=== PATIENT | female | born 1950 | race Caucasian/White ===

== ENCOUNTER → 2022-12-18 | Outpatient (CLI) | payer MEDICARE, OTHER ==
--- NOTE | 2022-12-18 15:12 | MR ---
EXAMINATION TYPE: MR knee LT wo con DATE OF EXAM: 12/18/2022 COMPARISON: None HISTORY: Left knee pain, fall 1 year ago. TECHNIQUE: Multiplanar, multisequence imaging of the left knee is performed without IV contrast. FINDINGS: MEDIAL MENISCUS: There is oblique tear involving the posterior horn of the medial meniscus with super imposed myxoid degeneration. Tear appears to extend into the meniscal body. Anterior horn is intact. LATERAL MENISCUS: Anterior and posterior horns are intact without tear. CRUCIATE LIGAMENTS: The anterior and posterior cruciate ligaments are intact and unremarkable. COLLATERAL LIGAMENTS: The medial collateral ligament and lateral collateral ligament complex are inta ct and unremarkable. EXTENSOR MECHANISM: Visualized quadriceps and patellar tendons are intact. EFFUSION: Mild suprapatellar joint effusion. POPLITEAL CYST: No popliteal/sharpe cyst. TRICOMPARTMENT SPACES: Mild degenerative joint space narrowing medial tibiofemoral joint space and pa tellofemoral joint space. CARTILAGE: Mild cartilaginous thinning medial compartment. BONE MARROW SIGNAL: No focal abnormal marrow signal is appreciated. OTHER: No additional significant abnormality is appreciated. IMPRESSION: 1.There is oblique tear involving the posterior horn of the medial meniscus with superimposed myxoid degeneration. Tear appears to extend into the meniscal body.
== END | disposition home or self-care (01) ==
LOC: RADMRIMAIN 13:32
PROVIDERS: ATTEND Orthopaedic Surgery
DX: S83.242A Other tear of medial meniscus, current injury, left knee, initial encounter (principal)